=== PATIENT | female | born 1975 | race Caucasian/White ===

== ENCOUNTER 2017-10-29 17:46 | Emergency (ER) | payer OTHER ==
[~2017-10-29] VITALS: Ht 160 cm; Wt 63.5 kg
--- NOTE | 2017-10-29 17:50 | NUR ---
AAOX3, BIBRA 878 C/O R ANKLE PAIN AND SWELLING S/P TRIPPED AND FELL, -KO. RESP IS EVEN AND UNLABORED WITH NAD NOTED. CMS WNL. SKIN IS WARM AND DRY. ANGEL RANDHAWA AT BS FOR EVAL.
[2017-10-29] MEDS ORDERED: CARB200C2 PO (17:55)
[2017-10-29] MEDS ORDERED: HYDROCODONE/APAP 10/325MG 1 EA TABLET ONE (17:57)
[2017-10-29] MEDS ORDERED: HYDROCODONE/APAP 10/325MG 1 EA TABLET PO ONE (18:00)
[2017-10-29 18:48] VITALS: BP 115/84
== END 2017-10-29 18:57 | disposition home or self-care (01) ==
LOC: ER 17:48
DX: S93.401A Sprain of unspecified ligament of right ankle, initial encounter (principal); W18.39XA Other fall on same level, initial encounter; Y93.89 Activity, other specified; Y92.89 Other specified places as the place of occurrence of the external cause; Y99.8 Other external cause status; Z90.710 Acquired absence of both cervix and uterus
CPT/HCPCS: 73610; 99284; A4606; Z7610